=== PATIENT | male | born 1980 | race Two or more races ===

== ENCOUNTER 2017-12-05 06:30 | Emergency (ER) | payer SELFPAY ==
[~2017-12-05] VITALS: Ht 182.9 cm; Wt 113.4 kg
[2017-12-05 06:46] VITALS: BP 162/99
--- NOTE | 2017-12-05 06:55 | NUR ---
Dr Soriano at bedside to evaluate patient.
--- NOTE | 2017-12-05 07:25 | NUR ---
PATIENT REFUSING IV INSERTION, BLOOD DRAW, AND IV MORPHINE AT THIS TIME UNTIL UA IS RESULTED.
[2017-12-05] MEDS ORDERED: MORPHINE SULFATE INJ 2 MG/ML DISP.SYRIN IV ONE (07:30)
[2017-12-05] MEDS ORDERED: MORPHINE SULFATE INJ 2 MG/ML DISP.SYRIN ONE (07:31)
[2017-12-05] MEDS ORDERED: MORPHINE SULFATE INJ 4 MG/ML DISP.SYRIN ONE (07:32)
[2017-12-05 07:33] LABS: APPEARANCE,URINE CLEAR (CLEAR); BILIRUBIN,URINE NEGATIVE (NEGATIVE); BLOOD, URINE 2+ Ery/uL (NEGATIVE); COLOR,URINE YELLOW (YELLOW); KETONES,URINE NEGATIVE (NEGATIVE); LEUKOCYTE ESTERASE ,URINE NEGATIVE (NEGATIVE); NITRITE, URINE NEGATIVE (NEGATIVE); PROTEIN,URINE NEGATIVE (NEGATIVE); UGLUCOSE NEGATIVE (NEGATIVE); UROBILINOGEN,URINE 0.2 EU/dL (0.2)
[2017-12-05 07:58] LABS: BACTERIA,URINE Rare /HPF (None Seen); SQUAMOUS EPITHELIAL CELL,UR Few /HPF (None Seen); WBC,URINE 0-2 /HPF (0-3)
--- NOTE | 2017-12-05 08:09 | NUR ---
PATIENT REFUSED ULTRASOUND. WALKED OUT OF ER WITH MOTHER, AWARE.
--- NOTE | 2017-12-05 08:10 | NUR ---
I arrived at 0805am. Test cancelled per Dr. Rahman at 0810am. The scrotal ultrasound was not performed.
== END 2017-12-05 08:15 | disposition left against medical advice (07) ==
LOC: ER 06:30
DX: N50.819 Testicular pain, unspecified (principal); N41.9 Inflammatory disease of prostate, unspecified
CPT/HCPCS: 81001; 87086; 99284; A4606; Z7610; 81000-TC; J2270